=== PATIENT | female | born 1980 | race Caucasian/White ===

== ENCOUNTER 2024-10-30 20:19 | Emergency (ER) | payer MEDICAID, SELFPAY ==
[2024-10-30 20:20] VITALS: BP 140/97; PULSE 97; RESP 18; TEMP 36.6; O2SAT 100; BMI 17.6
--- NOTE | 2024-10-30 20:39 | EX.ED.SAOD ---
HPI History of Present Illness Chief Complaint: Substance Abuse Detail of Chief Complaint: Requesting dose of Suboxone Informant: patient Narrative Narrative: Patient presents to the emergency department with request for a dose of Suboxone. Patient states that she was discharged a week ago from [facility] which is a facility to treat substance abuse and alcohol abuse. She was not discharged with a prescription for Suboxone and she was taken 8 mg a day. Patient does not want to use any narcotics and has been clean. She has not used alcohol since 2020. Denies feeling suicidal or homicidal. She has an appointment with 180 tomorrow. Has not had her Suboxone and 5 to 6 days. [facility] Medical History (Updated 10/30/24 @ 20:[address] Lolita Lockett DO) Asthma Substance abuse Allergy/AdvReac Type Severity Reaction Status Date / Time latex Allergy Intermediate Rash Verified 10/30/24 20:21 Surgical History (Updated 10/30/24 @ 20:32 by Wyatt Myers) Hx of section Social History Smoking Status: Current every day smoker tobacco type: cigarettes and e-cigarettes ROS ROS ED Review of Systems ROS Unobtainable: other Constitutional Constitutional ED: Reports lethargy; Denies chills, fever(s), sweats or weight loss Eyes Eyes: Denies blurry vision, change in vision or diplopia ENT ENT ED: Denies rhinorrhea or sore throat Cardiovascular Cardiovascular: Denies chest pain, orthopnea or racing heartbeat Respiratory/Chest Respiratory/Chest: Denies cough, dyspnea, dyspnea on exertion, orthopnea or sputum Gastrointestinal Gastrointestinal: Denies abdominal pain, diarrhea, nausea or vomiting Genitourinary Genitourinary ED: Denies dysuria, hematuria or urinary frequency Musculoskeletal Musculoskeletal: Denies arthralgias, back pain, myalgias or neck pain Integumentary Denies abscess, Abrasions or rash Neurologic Neurologic: Denies headache(s) or weakness Psychiatric Psychiatric: Denies anxiety, depression or suicidal thoughts Endocrine Endocrinology: Denies polydipsia, polyphagia or polyuria Hematologic/Lymphatic Hematologic/Lymphatic: Denies easy bleeding, easy bruising or lymphadenopathy Allergic/Immunologic Allergic/Immunologic ED: Denies mouth swelling, tongue swelling or urticaria EXAM Physical Exam Const Vital Signs: 10/30/24 20:20 Temperature 98 F Temperature Source Temporal Pulse Rate 97 Respiratory Rate 18 Blood Pressure 140/97 H Blood Pressure Mean 111 Pulse Ox 100 Oxygen Delivery Method Room Air Positive well nourished and well developed General Appearance ED: well developed and NAD HEENT Reports TM's clear and moist mucous membranes normocephalic and atraumatic; Negative for trauma or tenderness Tympanic Membrane ED: Yes TM's clear Eyes PERRL and EOMs intact bilaterally General Eye ED: Negative for pale conjunctiva or scleral icterus Neck no lymphadenopathy, supple and no JVD General: Negative for tenderness Chest Wall inspection of chest normal and palpation of chest normal Chest: Negative for tenderness Resp normal respiratory effort and clear to auscultation bilaterally Effort and Inspection: Negative for respiratory distress or pain with movement Auscultation: Negative for rhonchi, wheezes or diminished lung sounds Cardio regular rate, regular rhythm, S1 normal heart sound, S2 normal heart sound and no murmurs Peripheral Pulses: pulses 2+ throughout GI normal to inspection, nondistended, normoactive bowel sounds, soft to palpation, non-tender, non-distended and no masses Back/Spine no CVA tenderness and no thoracic nor lumbar tenderness Extremity normal to inspection General Extremety ED: Negative for edema General Extremity: Negative for edema Neuro oriented x3, CN's II-XII intact bilaterally, no sensory deficits noted and gait normal Sensorium / Orientation: awake, alert, oriented to person, oriented to place and oriented to time Motor Exam: strength 5/5 throughout and strength abnormal Psych mental status grossly normal Skin no rashes or lesions noted and no wounds MDM MDM MDM Narrative Medical decision making narrative: Patient presents with request for dose of Zubsolv. I discussed with our pharmacist and we only have buprenorphine 8 mg sublingual tablets. I will give her a dose tonight. She will follow-up with 180 tomorrow. She has no other complaints. Discharge Plan Triage Chief Complaint: Substance Abuse ED Provider: Lolita Lockett Dx/Rx/DC Orders Clinical Impression: Medication requested Instructions: ED Opiate Abuse Referrals: [facility] [Non-Staff] - 1 Day Print Language: [place]ian Disposition Disposition: Home, Self Care
[2024-10-30 20:57] VITALS: BP 134/94; PULSE 73; RESP 18; TEMP 36.6; O2SAT 100
== END 2024-10-30 21:01 | disposition home or self-care (01) ==
PROVIDERS: Emergency Provider Emergency Medicine; Referring Provider Emergency Medicine; Visit Provider Emergency Medicine
DX: F11.10 Opioid abuse, uncomplicated (principal); F17.210 Nicotine dependence, cigarettes, uncomplicated; F17.290 Nicotine dependence, other tobacco product, uncomplicated
CPT/HCPCS: 99282